=== PATIENT | male | born 1955 | race African-American/Black ===

== ENCOUNTER → 2018-09-27 | Outpatient (CLI) | payer OTHER ==
--- NOTE | 2018-09-27 12:33 | KCIC ---
EXAM: Bilateral shoulders, 3 views. HISTORY: Pain. COMPARISON: None. FINDINGS: 3 views of both shoulders are obtained. There is no fracture, dislocation or subluxation. There is a 1.6 cm right subacromial spur. IMPRESSION: 1. No acute osseous finding. 2. Right subacromial spur. This can be associated with impingement. Electronically signed by: Bridget Arnold MD (09/27/2018 12:29 PM) [facility]
== END | disposition home or self-care (01) ==
LOC: KCIC 12:02
PROVIDERS: ATTEND Family Medicine
DX: M75.81 Other shoulder lesions, right shoulder (principal); M75.52 Bursitis of left shoulder
CPT/HCPCS: 73030

== ENCOUNTER → 2021-08-27 | Outpatient (CLI) | payer MEDICARE ==
--- NOTE | 2021-08-27 15:03 | KCIC ---
EXAMINATION: MRI LEFT SHOULDER WITHOUT IV CONTRAST CLINICAL HISTORY: Chronic left shoulder pain and decreased ROM with NKI. TECHNIQUE: Multiplanar multisequential images obtained through the shoulder without intravenous contr ast. COMPARISON: Left shoulder radiographs 07/30/2021 FINDINGS: TENDONS: - Supraspinatus: Full-thickness tear involving the anterior two thirds of the tendon. Low-grade parti al-thickness articular sided tear involving the posterior third of the tendon. - Infraspinatus: Low-grade interstitial tearing in the anterior half of the tendon. - Subscapularis: Within normal limits. - Teres Minor: Within normal limits. - Biceps Tendon: Long head biceps tendon intact and appropriately located. MUSCLES: Muscle bulk and signal intensity are within normal limits. LABRUM: Posterior inferior labral tear extending from 7:00-9:00 position. GLENOHUMERAL JOINT: - Joint Fluid: No joint effusion or synovitis. Mild fluid extending into the subacromial/subdeltoid b ursa. - Cartilage: Within normal limits. ACROMIOCLAVICULAR JOINT: Mild to moderate hypertrophic degenerative changes. BONES/MARROW: No evidence of acute fracture or suspicious marrow replacing process. IMPRESSION: Full-thickness supraspinatus tendon tear. Additional low grade partial-thickness and interstitial tea ring in the supraspinatus and infraspinatus tendons, respectively. Posterior inferior glenoid labrum tear. Electronically signed by: Felix Billingsley DO (08/27/2021 3:01 PM) [facility]
== END ==
LOC: KCIC MRI 12:54
PROVIDERS: ATTEND Orthopaedic Surgery Sports Medicine
DX: S43.432A Superior glenoid labrum lesion of left shoulder, initial encounter (principal); M75.122 Complete rotator cuff tear or rupture of left shoulder, not specified as traumatic; M19.012 Primary osteoarthritis, left shoulder; M75.52 Bursitis of left shoulder; X58.XXXA Exposure to other specified factors, initial encounter; Y93.89 Activity, other specified; Y92.89 Other specified places as the place of occurrence of the external cause; Y99.8 Other external cause status
CPT/HCPCS: 73221

== ENCOUNTER 2021-10-01 07:45 | Day surgery (SDC) | payer MEDICARE ==
[~2021-10-01] VITALS: Ht 177.8 cm; Wt 81.0 kg
[~2021-10-01 07:45] MED LIST: ATOR10TA60 PO; HYDROmorphone 2 MG/ML INJ. IVP PRN; IV RINGERS,LACTATED 1000ML 1,000 ML IV SCH; LATA2.5D2 OU; MORPHINE SULFATE 2 MG/ML INJ. IVP PRN; PROCHLORPERAZINE 10 MG/2 ML VIAL. IVP PRN; fentaNYL PF VIAL 100 MCG/2 ML VIAL IVP PRN
[2021-10-01] MEDS ORDERED: LIDOCAINE 1% PF 30 ML VIAL. ONE (07:51)
[2021-10-01] MEDS ORDERED: BUPIVACAINE MPF 0.5% 30 ML VIAL. ONE (07:52)
[2021-10-01] MEDS ORDERED: ROPIVacaine 0.5% PF 20 ML VIAL. ONE (08:01)
[2021-10-01] MEDS ORDERED: MIDAZOLAM HCL/PF 2 MG/2 ML VIAL. ONE (08:01)
[2021-10-01] MEDS ORDERED: OXYC-325 PO (08:10)
--- NOTE | 2021-10-01 08:12 | DISCH ---
DISCHARGE INSTRUCTIONS Condition on Discharge Condition on Discharge: Stable Activity After Discharge Activity Instructions for Disc: Other, see below Other activity instructions: arm to remain in sling Bathing Instructions: Shower-keep dressing dry Lifting Instructions after Dis: No heavy lifting, No pulling or pushing Weight Bearing Status after Di: Non weight bearing Diet after Discharge Diet after Discharge: Regular Wound Incision Care Wound/Incision Care: Ice to area for comfort, Keep wound/cast CDI, Change dressing Other wound/incision instructi: change dressing in 2 days Contacting the [facility] after DC Call your doctor for: Concerns you may have Follow-Up Follow up with: Alyce in 2wks DHRUV GAY II, MD Oct 01, 2021 08:12
--- NOTE | 2021-10-01 08:13 | PDOC4 ---
Operative Note Operative Note Date of procedure: Surgeon: Deniz Gay [employer] Merchandise Salesperson: Paul Loya, certified medical asst Preoperative diagnosis: left shoulder rotator cuff tear Postoperative diagnosis: Same Procedure performed: Arthroscopic left shoulder rotator cuff repair Anesthesia: Gen. plus regional nerve block Findings: #1 Articular side of his rotator cuff was intact circumferentially 2. Biceps unremarkable 3. Labrum intact circumferentially 4. Glenohumeral cartilage unremarkable 5. Bursal sided tear at supraspinatus Blood loss: 10mL Components inserted: [employer] Helacoil anchor Reason for procedure: Patient is a very pleasant gentleman who has had developed acute shoulder pain and dysfunction after a fall Clinical and radiographic examination, including MRI were consistent with the preoperative diagnosis. Due to the acute nature, we elected to proceed with arthroscopic rotator cuff repair after we had a discussion of the risks, benefits, and alternatives, the patient elected to proceed. Description of procedure: Patient was greeted in the preoperative holding area where the correct extremity was verified and marked. They were taken to the preoperative holding area where the anesthesiology team placed a regional nerve block. The patient was then taken back to the operative suite and antibiotics were started as they were brought back. Once in the operative room, the patient was transferred gently supine to the operating room table after successful induction of a general anesthetic. After this, he was sat up in a beachchair position maintaining his C-spine in neutral position, large pad under his legs, he was secured to the bed. We then prepped and draped his left upper extremity and shoulder girdle in our usual sterile fashion, we conducted our standard preoperative timeout. I palpated and marked surface anatomy for my planned portal sites. I then used a spinal needle to localize a posterior superior portal and incised skin in accordance with this. After this, I introduced the blunt arthroscopic trocar into the glenohumeral joint followed by the camera. I used a spinal needle to localize an anterosuperior portal and incised skin in accordance with this. I then introduced my arthroscopic probe and conducted my diagnostic arthroscopy with the above-noted findings. From an intra-articular vantage point, his rotator cuff looked unremarkable. I did use a spinal needle to shuttle a PDS suture through the leading edge of the supraspinatus as based on the MRI this was my area of concern. After this, I repositioned the camera into the subacromial space and performed a bursectomy with combination of shaver and electrocautery device. I then identified the rotator cuff tear, which corresponded to the PDS suture and passed in the MRI, and I debrided the pathologic tendon and prepared my footprint. I used a spinal needle to localize an anterolateral lateral accessory portal I then placed my helacoil anchor and shuttled limbs through in a simple configuration. I tied these down with arthroscopic knot-tying techniques. The tear was stable to probing and to gentle rotation of the arm. I then removed all loose bony debris and the excess arthroscopic fluid. I took my final pictures prior to this. After this, all the excess fluid and instrumentation was removed. The portals were closed with simple interrupted 3-0 nylon. Sterile dressing was applied followed by an abduction pillow sling. Patient tolerated surgery well. No complications. At the conclusion, he was laid supine and transferred gently supine to the recovery room cart and taken to the PACU in a stable and extubated condition. Postoperative plan is discharge him home, nonweightbearing for 4 weeks. Well get him started on physical therapy. He will follow up with me in 2 weeks, sooner should a problem arise. DENIZ GAY II, MD Oct 01, 2021 08:13
[2021-10-01 08:19] VITALS: BP 151/75
[2021-10-01] MEDS ORDERED: SUCCINYLCHOLINE 200 MG/10 ML VIAL. ONE (08:48)
[2021-10-01] MEDS ORDERED: ROCURONIUM 50 MG/5 ML VIAL. ONE (08:48)
[2021-10-01] MEDS ORDERED: fentaNYL PF VIAL 100 MCG/2 ML VIAL ONE ×2 (08:48→10:52)
[2021-10-01] MEDS ORDERED: DEXAMETHASONE SOD PHOS 4 MG/ML VIAL ONE (08:52)
[2021-10-01] MEDS ORDERED: LIDOCAINE 2% PF 5 ML VIAL. ONE (08:52)
[2021-10-01] MEDS ORDERED: ONDANSETRON PF 4 MG/2 ML VIAL. ONE (08:52)
[2021-10-01] MEDS ORDERED: EPINEPHrine VIAL 30 MG/30 ML VIAL ONE (09:24)
[2021-10-01] MEDS: fentaNYL PF VIAL 100 MCG/2 ML VIAL IVP PRN ×2 (10:56→11:08)
[2021-10-01] MEDS ORDERED: oxyCODONE/APAP 5/325 1 TAB TABLET PO ONE (11:00)
[2021-10-01 11:34] VITALS: BP 131/88
== END 2021-10-01 12:15 | disposition home or self-care (01) ==
LOC: SURG 07:45
PROVIDERS: ATTEND Orthopaedic Surgery Sports Medicine
DX: M75.102 Unspecified rotator cuff tear or rupture of left shoulder, not specified as traumatic (principal); E78.00 Pure hypercholesterolemia, unspecified; Z79.899 Other long term (current) drug therapy; Z98.890 Other specified postprocedural states; Z88.1 Allergy status to other antibiotic agents
CPT/HCPCS: 29827; 64415; A4213; A4364; A4565; A4930; A6223; A6253; A6402; C1713; J0171; J0330; J0690; J1100; J2250; J2405; J2795; J3010; A4452; A6454; J3490